=== PATIENT | male | born 1985 | race Hispanic/Latino ===

== ENCOUNTER 2020-10-10 11:38 | Emergency (ER) | payer SELFPAY ==
[2020-10-10 14:03] VITALS: BP 124/70
[2020-10-10 14:56] LABS: Basophils # (Auto) 0.1 K/mm3 (0.0-0.1); Eosinophils # (Auto) 0.4 K/mm3 (0.0-0.4); Eosinophils % (Auto) 4.4 % (0.0-4.3); Hematocrit 47.6 % (35.5-45.6); Hemoglobin 16.4 gm/dl (11.8-15.2); Lymphocytes # (Auto) 2.5 K/mm3 (1.2-5.4); Lymphocytes % (Auto) 27.5 % (13.4-35.0); Mean Corpuscular HGB Conc 34 % (32-34); Mean Corpuscular Volume 94 fl (84-94); Monocytes # (Auto) 0.9 K/mm3 (0.0-0.8); Monocytes % (Auto) 9.9 % (0.0-7.3); Platelet Count 276 K/mm3 (140-440); Red Blood Count 5.04 M/mm3 (3.65-5.03); Red Cell Distribution Width 13.4 % (13.2-15.2)
[2020-10-10 15:03] LABS: BUN/Creatinine Ratio 21; Blood Urea Nitrogen 17 mg/dL (9-20); Hemolysis Index 6
--- NOTE | 2020-10-10 15:54 | Emergency Department Report ---
HPI - General Chief Complaint: Psych Time Seen by Provider: 10/10/20 15:46 - HPI HPI: 35-year-old male presents to the emergency department for a mental health evaluation. He has a history of schizophrenia and complains of nonspecific hallucinations auditory. He says that he hears many different sounds and noises and he fights them finds them to be disturbing. He denies any suicidal or homicidal ideations. The patient got out of a psychiatric facility about 1.5 weeks ago but says that he lost his medications almost immediately. He says he was on Celexa, and "2 more." He denies any past medical history. ED Review of Systems ROS: Stated complaint: HEARING VOICES Other details as noted in HPI Comment: All other systems reviewed and negative Constitutional: denies: chills, fever Eyes: denies: eye pain, vision change ENT: denies: ear pain, throat pain Respiratory: denies: cough, shortness of breath Cardiovascular: denies: chest pain, palpitations Gastrointestinal: denies: abdominal pain, vomiting Genitourinary: denies: dysuria, discharge Musculoskeletal: denies: joint swelling, arthralgia Skin: denies: rash, lesions Neurological: denies: weakness, numbness Psychiatric: auditory hallucinations. denies: homicidal thoughts, suicidal thoughts Physical Exam - Physical Exam Vital Signs: Vital Signs 10/10/20 13:59 Temperature 97.6 F Pulse Rate 82 Respiratory 16 Rate Blood Pressure 124/70 [Right] O2 Sat by Pulse 98 Oximetry Physical Exam: GENERAL: The patient is well-developed well-nourished. HENT: Normocephalic. Atraumatic. Patient has moist mucous membranes. EYES: Extraocular motions are intact. NECK: Supple. Trachea is midline. CHEST/LUNGS: Clear to auscultation. There is no respiratory distress noted. HEART/CARDIOVASCULAR: Regular. There is no tachycardia. There is no murmur. ABDOMEN: Abdomen is soft, nontender. Patient has normal bowel sounds. SKIN: Skin is warm and dry. NEURO: The patient is awake, alert, and oriented. The patient is cooperative. Normal speech. MUSCULOSKELETAL: There is no tenderness or deformity. There is no limitation range of motion. . ED Course Vital Signs 10/10/20 13:59 Temperature 97.6 F Pulse Rate 82 Respiratory 16 Rate Blood Pressure 124/70 [Right] O2 Sat by Pulse 98 Oximetry ED Medical Decision Making - Lab Data Result diagrams: 10/10/20 14:24 10/10/20 14:24 Lab Results 10/10/20 10/10/20 10/10/20 Range/Units 14:24 14:24 14:24 WBC (4.5-11.0) K/mm3 RBC (3.65-5.03) M/mm3 Hgb (11.8-15.2) gm/dl Hct (35.5-45.6) % MCV (84-94) fl MCH (28-32) pg MCHC (32-34) % RDW (13.2-15.2) % Plt Count (140-440) K/mm3 Lymph % (Auto) (13.4-35.0) % Brown % (Auto) (0.0-7.3) % Eos % (Auto) (0.0-4.3) % Baso % (Auto) (0.0-1.8) % Lymph # (Auto) (1.2-5.4) K/mm3 Brown # (Auto) (0.0-0.8) K/mm3 Eos # (Auto) (0.0-0.4) K/mm3 Baso # (Auto) (0.0-0.1) K/mm3 Seg Neutrophils % (40.0-70.0) % Seg Neutrophils # (1.8-7.7) K/mm3 Sodium 135 L (137-145) mmol/L Potassium 3.5 L (3.6-5.0) mmol/L Chloride 97.0 L (98-107) mmol/L Carbon Dioxide 27 (22-30) mmol/L Anion Gap 15 mmol/L BUN 17 (9-20) mg/dL Creatinine 0.8 (0.8-1.3) mg/dL Estimated GFR > 60 ml/min BUN/Creatinine Ratio 21 % Glucose 89 (75-100) mg/dL Calcium 10.0 (8.4-10.2) mg/dL Salicylates < 0.3 L (2.8-20.0) mg/dL Acetaminophen 5.0 L (10.0-30.0) ug/mL Plasma/Serum Alcohol (0-0.07) % 10/10/20 10/10/20 Range/Units 14:24 14:24 WBC 9.0 (4.5-11.0) K/mm3 RBC 5.04 H (3.65-5.03) M/mm3 Hgb 16.4 H (11.8-15.2) gm/dl Hct 47.6 H (35.5-45.6) % MCV 94 (84-94) fl MCH 32 (28-32) pg MCHC 34 (32-34) % RDW 13.4 (13.2-15.2) % Plt Count 276 (140-440) K/mm3 Lymph % (Auto) 27.5 (13.4-35.0) % Brown % (Auto) 9.9 H (0.0-7.3) % Eos % (Auto) 4.4 H (0.0-4.3) % Baso % (Auto) 1.0 (0.0-1.8) % Lymph # (Auto) 2.5 (1.2-5.4) K/mm3 Brown # (Auto) 0.9 H (0.0-0.8) K/mm3 Eos # (Auto) 0.4 (0.0-0.4) K/mm3 Baso # (Auto) 0.1 (0.0-0.1) K/mm3 Seg Neutrophils % 57.2 (40.0-70.0) % Seg Neutrophils # 5.2 (1.8-7.7) K/mm3 Sodium (137-145) mmol/L Potassium (3.6-5.0) mmol/L Chloride (98-107) mmol/L Carbon Dioxide (22-30) mmol/L Anion Gap mmol/L BUN (9-20) mg/dL Creatinine (0.8-1.3) mg/dL Estimated GFR ml/min BUN/Creatinine Ratio % Glucose (75-100) mg/dL Calcium (8.4-10.2) mg/dL Salicylates (2.8-20.0) mg/dL Acetaminophen (10.0-30.0) ug/mL Plasma/Serum Alcohol < 0.01 (0-0.07) % - Medical Decision Making This patient, with a history of schizophrenia, presents for a mental health evaluation. He denies any suicidal or homicidal ideations. He admits to a auditory hallucinations, but they are not causing but they are not command hallucinations and he is not responding to internal stimuli. At the time of my examination, the patient is calm and appropriate, oriented. He is not obvious for requiring a 1013 and/or inpatient stabilization. The patient is very interested in inpatient treatment as he wants to get restarted on his psychiatric medications. Labs have been mostly unremarkable thus far including CBC, metabolic panel, blood alcohol level. We do not yet have a urine sample for urinalysis and UDS. If the patient has UTI he may require antibiotics. He does not appear acutely intoxicated. The patient was later seen by the psychiatric team who agreed that the patient does not meet criteria for 1013 or require inpatient stabilization. He has been given outpatient referrals for behavioral health centers and psychiatry. He understands that he should return to the emergency department with any worsening of his symptoms, thoughts of harming himself or others, or with any acute distress. Critical Care Time: No Critical care attestation.: If time is entered above; I have spent that time in minutes in the direct care of this critically ill patient, excluding procedure time. ED Disposition Clinical Impression: Auditory hallucinations Schizophrenia Qualifiers: Schizophrenia type: unspecified Qualified Code(s): F20.9 - Schizophrenia, unspecified Disposition: DC-09 OP ADMIT IP TO THIS HOSP Is pt being admited?: No Condition: Stable Instructions: Schizophrenia Additional Instructions: In case of an emergency, please contact the following numbers: [place] Crisis and Access Line: Number: Crisis Text Line: (Text START) Number: 002871 Suicide Prevention Line: Number: Emergency Number: 911 SUBSTANCE ABUSE PROGRAMS: [facility]: Location: [place], [place] [facility] Address: [address] [place] [address] [facility]: Address: [address] [place] [address] [facility] Adult Rehabilitation: Address: [address] [place] [address] [facility]: Address: [address] [place] [address] [facility] Address: [address] [place] [address]. Please contact above numbers to attempt placement into free based program. Medicaid Programs: [facility]: Address: [address] [place] [address] [facility]: Address: [address] [place] [id number] HOMELESS RESOURCES: [facility] NEED HELP? If you are in need of help or know someone who does, please contact us at [email or web address] call , or come to our offices at [address] [facility], [place] [address], Tuesday-Tuesday beginning at 8AM. [facility] Males only Admission at 7am Tue to Tue Address: [address] [place] [address] Client Engagement [phone] Regular program admission occurs Tuesday through Tuesday at 7:00 amand operates on a first come, first serve basis.Because we cant anticipate program availability in advance andprogram spots are in high demand, we recommend arriving early. Space fills up fast! Next steps can include: Assignment to a [facility] program bed Connection to and placement in a partner program, or Referral to a partner agency [place]: [facility] Address: [address] [place] [address] How do I join the [facility] housing program? Our housing programs are offered based on availability. If you are looking to participate in our housing program, simply call [phone] to find out if we have available space. Since we do receive many calls, please allow up to 48 hours for one of our housing specialists to return your call. If we do not have vacancies, we suggest callingthe [facility] hotline at 211 for additional housing options. [facility] only Admission at 4:30pm daily Address: [address] [place] [address] [facility] Admission from 8am to 10am Daily No intake until 03/10/20 Address: [address] [place] [address] [facility]: [facility] [address] [place] [address] Tuesday thru Tuesday - 8am - 5pm Call to schedule an assessment for mental health and substance abuse programs [facility]: [facility] Address: [address] [place] [address] Tuesday thru Tuesday- 7am-2pm [facility] Address: [address] [place] [address] Tuesday thru Tuesday: 8:30AM-5PM Referrals: [facility] [Provider Group] - 3-5 Days [facility] [Outside] - 3-5 Days [facility], [Primary Care Provider] - 3-5 Days Time of Disposition: 18:22
== END 2020-10-10 19:26 | disposition admitted as inpatient to this hospital (09) ==
LOC: ED 11:38
DX: F20.9 Schizophrenia, unspecified (principal)
CPT/HCPCS: 36415; 80048; 80320; 85025; 99283; G0480

== ENCOUNTER 2021-04-09 00:04 | Emergency (ER) | payer SELFPAY ==
--- NOTE | 2021-04-09 00:48 | Emergency Department Report ---
HPI - General Chief Complaint: Psych Time Seen by Provider: 04/09/21 00:23 - [facility] HPI: [place] [address] The patient is a 36-year-old male present with a chief complaint of suicidal ideation. Patient states he is felt suicidal for the past 1 to 2 months. Patient admits to auditory hallucinations as well. The patient states a day or 2 ago he had a plan to jump off of a tower but when he got to the top the door was locked. Patient has a history of schizophrenia and admits to methamphetamine use ED Past Medical Hx - Past Medical History Previous Medical History?: Yes Hx Psychiatric Treatment: (schizophrenia) - Surgical History Past Surgical History?: Yes - Family History Family history: no significant - Social History Smoking Status: Current Every Day Smoker (1 pack/day) Substance Use Type: Alcohol (Daily), Cocaine, Marijuana, Methamphetamines - Medications Home Medications: Home Medications Medication Instructions Recorded Confirmed Last Taken Type Divalproex Dr [DepaKOTE DR] 250 mg PO BID #60 tablet 04/12/21 Unknown Rx QUEtiapine [SEROquel] 150 mg PO BID #90 tab 04/12/21 Unknown Rx ED Review of Systems ROS: Stated complaint: SUICIDAL THOUGHTS Other details as noted in HPI Constitutional: no symptoms reported Eyes: denies: eye pain ENT: denies: throat pain Respiratory: no symptoms reported Cardiovascular: denies: chest pain Endocrine: no symptoms reported Gastrointestinal: denies: abdominal pain Genitourinary: denies: dysuria Musculoskeletal: denies: back pain Neurological: denies: headache Psychiatric: auditory hallucinations, suicidal thoughts Physical Exam - Physical Exam Vital Signs: Vital Signs 04/09/21 00:21 Temperature 98.9 F Pulse Rate 98 H Respiratory 16 Rate Blood Pressure 123/74 [Right] O2 Sat by Pulse 100 Oximetry Physical Exam: GENERAL: The patient is well-developed well-nourished male lying on stretcher not appearing to be in acute distress. [] HEENT: Normocephalic. Atraumatic. Extraocular motions are intact. Patient has moist mucous membranes. NECK: Supple. Trachea midline CHEST/LUNGS: Clear to auscultation. There is no respiratory distress noted. HEART/CARDIOVASCULAR: Regular. There is no tachycardia. There is no gallop rub or murmur. ABDOMEN: Abdomen is soft, nontender. Patient has normal bowel sounds. There is no abdominal distention. SKIN: There is no rash. There is no edema. There is no diaphoresis. NEURO: The patient is awake, alert, and oriented. The patient is cooperative. The patient has no focal neurologic deficits. The patient has normal speech. G CS 15 MUSCULOSKELETAL: There is no evidence of acute injury. ED Course Vital Signs 04/09/21 00:21 Temperature 98.9 F Pulse Rate 98 H Respiratory 16 Rate Blood Pressure 123/74 [Right] O2 Sat by Pulse 100 Oximetry ED Medical Decision Making - Lab Data Result diagrams: 04/12/21 09:23 04/09/21 00:35 - Differential Diagnosis Suicidal ideation Critical care attestation.: If time is entered above; I have spent that time in minutes in the direct care of this critically ill patient, excluding procedure time. ED Disposition Clinical Impression: Suicidal ideation Disposition: HOME / SELF CARE / HOMELESS Is pt being admited?: No Does the pt Need Aspirin: No Condition: Stable Instructions: Persistent Depressive Disorder, Adult, Suicidal Feelings: How to Help Yourself Additional Instructions: Drink plenty water. Continue your medications. Continue recommendations from behavioral health. Follow-up with your family doctor and the on-call physician as needed. Prescriptions: Divalproex Dr [DepaKOTE DR] 250 mg PO BID #60 tablet QUEtiapine [SEROquel] 150 mg PO BID #90 tab Referrals: GASPER KUMAR MD [Staff Physician] - 3-5 Days PRIMARY CARE, [Primary Care Provider] - 3-5 Days
[2021-04-09 00:54] LABS: Basophils % (Auto) 0.4 % (0.0-1.8); Eosinophils # (Auto) 0.2 K/mm3 (0.0-0.4); Eosinophils % (Auto) 1.6 % (0.0-4.3); Hemoglobin 16.1 gm/dl (11.8-15.2); Lymphocytes % (Auto) 16.2 % (13.4-35.0); Mean Corpuscular HGB Conc 33 % (32-34); Mean Corpuscular Volume 94 fl (84-94); Monocytes # (Auto) 1.3 K/mm3 (0.0-0.8); Monocytes % (Auto) 10.8 % (0.0-7.3); Platelet Count 325 K/mm3 (140-440); Red Blood Count 5.24 M/mm3 (3.65-5.03); Red Cell Distribution Width 13.5 % (13.2-15.2)
[2021-04-09 01:06] LABS: Alanine Aminotransferase 19 units/L (7-56); Albumin 5.2 g/dL (3.9-5); Blood Urea Nitrogen 22 mg/dL (9-20); Calcium 9.7 mg/dL (8.4-10.2); Hemolysis Index 22
[2021-04-09 01:07] LABS: BUN/Creatinine Ratio 31
--- NOTE | 2021-04-09 12:26 | Consultation ---
History of Present Illness - Reason for Consult Consult date: 04/09/21 Reason for consult: suicidal ideation - History of Present Psychiatric Illness ED Note: The patient is a 36-year-old male present with a chief complaint of suicidal ideation. Patient states he is felt suicidal for the past 1 to 2 months. Patient admits to auditory hallucinations as well. The patient states a day or 2 ago he had a plan to jump off of a tower but when he got to the top the door was locked. Patient has a history of schizophrenia and admits to methamphetamine use. Octavio Pena is a 36 year old male with history of schizophrenia who presents to the ED with suicidal ideation. In my interview with the patient, he endorses worsening depression and suicidal ideation with a plan jump off a tower. The patient reports recent stressor such as " family issues." The patient also admits to having command auditory hallucinations " voices telling me to do it." PAST PSYCHIATRIC HISTORY Diagnoses: Schizophrenia Suicide attempts or Self-harm behavior: Yes Prior psychiatric hospitalizations: Yes Substance Abuse history: "weed" Previous psychiatric medications tried: risperidone, depakote, seroquel Outpatient treatment: Yes PAST MEDICAL HISTORY: None reported Family Psychiatric History: None reported or documented SOCIAL HISTORY Marital Status: Single Living Arrangements:Lives with cousin Employment Status:employed Access to guns/weapons: Denies Education: 10th grade History of Abuse: none reported Legal History: none REVIEW OF SYSTEMS Constitutional: Negative for weight loss ENT: Negative for stridor Respiratory: Negative for cough or hemoptysis All other systems reviewed and are negative MENTAL STATUS EXAMINATION General Appearance and Behavior: Age appropriate,wearing appropriate clothes, fair eye contact Cooperation: Engaged Psychomotor Behavior: Normal Mood: Depressed Affect and affective range: congruent to stated mood Thought Process: Circumstantial Thought Content: Suicidal Speech: Normal tone and pace Suicidal Ideation:Yes Homicidal Ideation: Denies Hallucinations: Auditory Delusions: None elicited Insight and Judgment: Limited insight and fair judgment Memory: Normal Attention: divided attention impaired Orientation: Alert, oriented x2 Assessment: DX- Schizophrenia -1013 Treatment Plan Continue home medications. Start Seroquel 50mg po QHS Start Seroquel 25mg po BID Risks, benefits and alternatives of medications discussed with the patient, questions answered and consent obtained from patient. PSYCHOTHERAPY: Supportive psychotherapy provided MEDICAL: Per primary team DELIRIUM PRECAUTIONS: Please re-orient patient frequently, keep lights on during the day, and minimize benzodiazepines and opiates as these medications could worsen patient's confusion. NETWORK LIAISON: per primary DISPOSITION: Recommend acute psychiatric treatment. Will follow. Thank you for the consult. Please contact with any questions and/or concerns. Case discussed with Dr. Gotti who agrees with current disposition Medications and Allergies Medications and Allergies Medications and Allergies Allergies Allergy/AdvReac Type Severity Reaction Status Date / Time No Known Allergies Allergy Unverified 10/10/20 14:03 Mental Status Exam - Vital signs Last Vital Signs Temp 98.0 F 04/09/21 08:22 Pulse 81 04/09/21 08:22 Resp 16 04/09/21 08:22 BP 116/83 04/09/21 08:22 Pulse Ox 96 04/09/21 08:22 Results Result Diagrams: 04/09/21 00:35 04/09/21 00:35 Abnormal lab results 04/09/21 04/09/21 04/09/21 Range/Units 00:35 00:35 00:35 WBC 12.4 H (4.5-11.0) K/mm3 RBC 5.24 H (3.65-5.03) M/mm3 Hgb 16.1 H (11.8-15.2) gm/dl Hct 49.0 H (35.5-45.6) % Weston % (Auto) 10.8 H (0.0-7.3) % Weston # (Auto) 1.3 H (0.0-0.8) K/mm3 Seg Neutrophils % 71.0 H (40.0-70.0) % Seg Neutrophils # 8.8 H (1.8-7.7) K/mm3 Sodium 136 L (137-145) mmol/L BUN 22 H (9-20) mg/dL Creatinine 0.7 L (0.8-1.3) mg/dL Albumin 5.2 H (3.9-5) g/dL Salicylates < 0.3 L (2.8-20.0) mg/dL Acetaminophen (10.0-30.0) ug/mL 04/09/21 Range/Units 00:35 WBC (4.5-11.0) K/mm3 RBC (3.65-5.03) M/mm3 Hgb (11.8-15.2) gm/dl Hct (35.5-45.6) % Weston % (Auto) (0.0-7.3) % Weston # (Auto) (0.0-0.8) K/mm3 Seg Neutrophils % (40.0-70.0) % Seg Neutrophils # (1.8-7.7) K/mm3 Sodium (137-145) mmol/L BUN (9-20) mg/dL Creatinine (0.8-1.3) mg/dL Albumin (3.9-5) g/dL Salicylates (2.8-20.0) mg/dL Acetaminophen 5.0 L (10.0-30.0) ug/mL All other labs normal.
[2021-04-09] MEDS: QUEtiapine 25 MG TAB PO SCH ×2 (17:08→22:43)
[2021-04-09] MEDS ORDERED: ZIPRASIDONE MESYLATE 20 MG VIAL IM ONE (17:29)
[2021-04-09] MEDS ORDERED: QUEtiapine 25 MG TAB PO SCH (22:00)
[2021-04-10 09:08] LABS: Benzodiazepines Screen,Urine Negative; Cocaine Screen,Urine Negative; Methadone Screen,Urine Negative; Opiate Screen,Urine Negative
[2021-04-10] MEDS ORDERED: ZIPRASIDONE MESYLATE 20 MG VIAL IM ONE ×2 (09:11→09:16)
[2021-04-10 09:17] LABS: Bilirubin,Urine NEG (Negative); Blood,Urine NEG (Negative); Color,Urine Yellow (Yellow); Protein,Urine <15 mg/dL mg/dL (Negative); Urobilinogen,Urine < 2.0 mg/dL (<2.0)
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
[2021-04-10 09:29] LABS: Amphetamine Screen,Urine Positive; Cannabinoid Screen,Urine Positive
[2021-04-10 09:35] LABS: RBC,Urine < 1.0 /HPF (0.0-6.0); WBC,Urine < 1.0 /HPF (0.0-6.0)
[2021-04-10] MEDS: QUEtiapine 100 MG TAB PO SCH ×2 (09:52→22:30)
[2021-04-10] MEDS: DIVALPROEX DR 125 MG TAB PO SCH ×2 (09:52→22:30)
--- NOTE | 2021-04-10 11:35 | Emergency Department Report ---
Blank Doc - Documentation Documentation: Chart reviewed 36-year-old male presents to the hospital currently on 1013 for suicidal ideation with psychosis and paranoia. UDS positive for amphetamine. Covid negative. Compliant with p.o. medications. Placement pending.
[2021-04-10] MEDS ORDERED: NICOTINE 14 MG/24 HR PATCH TD ONE (16:49)
[2021-04-11] MEDS: DIVALPROEX DR 125 MG TAB PO SCH (09:36)
[2021-04-11] MEDS: QUEtiapine 100 MG TAB PO SCH ×3 (09:36→22:16)
--- NOTE | 2021-04-11 09:38 | Progress Note ---
Subjective - Reason for Consult Consult date: 04/11/21 Reason for consult: SI - Chief Complaint Chief complaint: The patient was seen today. He endorses SI with a plan to jump off of something. He says he is hearing voices. The patient says "there are too many of them for me to make out what they are saying to me." REVIEW OF SYSTEMS Constitutional: Negative for weight loss ENT: Negative for stridor Respiratory: Negative for cough or hemoptysis All other systems reviewed and are negative MENTAL STATUS EXAMINATION General Appearance and Behavior: Age appropriate,wearing appropriate clothes, fair eye contact, agitated Cooperation: Engaged Psychomotor Behavior: Normal Mood: upset Affect and affective range: congruent to stated mood Thought Process: Circumstantial Thought Content: Suicidal Speech: Normal tone and pace Suicidal Ideation: Yes Homicidal Ideation: Denies Hallucinations: Auditory Delusions: None elicited Insight and Judgment: Limited insight and fair judgment Memory: Normal Attention: divided attention impaired Orientation: Alert, oriented x2 Assessment: DX- Schizophrenia Treatment Plan 1013 Increase Seroquel 150mg po BID Increase Depakote DR 250mg po BID Risks, benefits and alternatives of medications discussed with the patient, questions answered and consent obtained from patient. PSYCHOTHERAPY: Supportive psychotherapy provided MEDICAL: Per primary team DELIRIUM PRECAUTIONS: Please re-orient patient frequently, keep lights on during the day, and minimize benzodiazepines and opiates as these medications could worsen patient's confusion. SOUND EQUIPMENT MECHANIC: per primary DISPOSITION: Recommend acute psychiatric treatment. Will follow. Thank you for the consult. Please contact with any questions and/or concerns. Case discussed with Dr. Gotti who agrees with current disposition Mental Status Exam - Vital signs Last Vital Signs Temp 97.5 F L 04/11/21 04:44 Pulse 65 04/11/21 04:44 Resp 16 04/11/21 04:44 BP 117/72 04/11/21 04:44 Pulse Ox 98 04/11/21 09:17
[2021-04-11 10:34] LABS: Amphetamine Screen,Urine Negative; Benzodiazepines Screen,Urine Negative; Cocaine Screen,Urine Negative; Methadone Screen,Urine Negative; Opiate Screen,Urine Negative
[2021-04-11 11:07] LABS: Cannabinoid Screen,Urine Positive
[2021-04-11] MEDS: DIVALPROEX DR 250 MG TAB PO SCH ×2 (11:22→22:16)
--- NOTE | 2021-04-11 12:22 | Event Note ---
Date: 04/11/21 36-year-old male here for SI/psychosis. He was seen by my colleague and was medically cleared for psychiatric evaluation and placement. Vital signs reviewed and are stable. There were no acute vents overnight. Currently awaiting inpatient psychiatric facility placement.
[2021-04-11] MEDS ORDERED: NICOTINE 14 MG/24 HR PATCH TD ONE (16:49)
--- NOTE | 2021-04-12 09:18 | Emergency Department Report ---
Blank Doc - Documentation Documentation: Throughout the night, there have been no problems. Patient still endorses kerry cidal thoughts. Symptoms have gradually improved. He did have leukocytosis but there was no source of infection. He was hemoconcentrated. A repeat CBC will be completed today just to document his white count has normalized so psychiatric services will be able to place the patient. Other labs have been reviewed.
[2021-04-12] MEDS: DIVALPROEX DR 250 MG TAB PO SCH (09:42)
[2021-04-12] MEDS: QUEtiapine 100 MG TAB PO SCH (09:42)
[2021-04-12 09:52] LABS: Hematocrit 49.4 % (35.5-45.6); Hemoglobin 15.8 gm/dl (11.8-15.2); Mean Corpuscular HGB Conc 32 % (32-34); Mean Corpuscular Volume 94 fl (84-94); Platelet Count 255 K/mm3 (140-440); Red Blood Count 5.28 M/mm3 (3.65-5.03); Red Cell Distribution Width 12.8 % (13.2-15.2)
--- NOTE | 2021-04-12 10:00 | Progress Note ---
Subjective - Reason for Consult Consult date: 04/12/21 Reason for consult: SI - Chief Complaint Chief complaint: The patient was seen today. He says he doesn't feel good. The patient says he has a headache. When asking how was his mood, he replies "I'm alright." He denies hallucinations of any kind. When asking about SI/HI. The patient first says "no." He then says "a little suicidal." REVIEW OF SYSTEMS Constitutional: Negative for weight loss ENT: Negative for stridor Respiratory: Negative for cough or hemoptysis All other systems reviewed and are negative MENTAL STATUS EXAMINATION General Appearance and Behavior: Age appropriate,wearing appropriate clothes, fair eye contact, calm, cooperative Cooperation: Engaged Psychomotor Behavior: Normal Mood: alright Affect and affective range: congruent to stated mood Thought Process: logical Thought Content: None Speech: Normal tone and pace Suicidal Ideation: a little Homicidal Ideation: Denies Hallucinations: Denies Delusions: None elicited Insight and Judgment: Limited insight and fair judgment Memory: Normal Attention: divided attention impaired Orientation: Alert, oriented x2 Assessment: DX- Schizophrenia Treatment Plan d/c 1013 Seroquel 150mg po BID Depakote DR 250mg po BID Risks, benefits and alternatives of medications discussed with the patient, questions answered and consent obtained from patient. PSYCHOTHERAPY: Supportive psychotherapy provided MEDICAL: Per primary team DELIRIUM PRECAUTIONS: Please re-orient patient frequently, keep lights on during the day, and minimize benzodiazepines and opiates as these medications could worsen patient's confusion. FISHER CRAB: per primary DISPOSITION: Do not recommend acute psychiatric treatment. The patient understands that if suicidal/homicidal thoughts arise he is to seek immediate assistance. The patient to follow up with outpatient psych in 7 to 14 days upon discharge. The javascript front end developer to give him all necessary outpatient resources including shelters. Please give the patient a transportation pass Will sign off. Thanks Thank you for the consult. Please contact with any questions and/or concerns. Case discussed with Dr. Gotti who agrees with current disposition Mental Status Exam - Vital signs Last Vital Signs Temp 98.5 F 04/11/21 21:02 Pulse 79 04/11/21 21:02 Resp 18 04/12/21 05:11 BP 115/75 04/11/21 21:02 Pulse Ox 97 04/12/21 05:11
[2021-04-12 10:48] VITALS: BP 112/67
== END 2021-04-12 11:02 | disposition home or self-care (01) ==
LOC: EEVIPCON 00:04 → ED 00:04
DX: F20.9 Schizophrenia, unspecified (principal); F14.10 Cocaine abuse, uncomplicated; F15.10 Other stimulant abuse, uncomplicated; F12.10 Cannabis abuse, uncomplicated; R45.851 Suicidal ideations; Z20.822 Contact with and (suspected) exposure to COVID-19
CPT/HCPCS: 36415; 80053; 80307; 81001; 85025; 85027; 96372; 99284; J3486; U0003; 80320; G0480

== ENCOUNTER 2021-04-28 02:47 | Emergency (ER) | payer SELFPAY ==
[2021-04-28 07:56] VITALS: BP 120/82
== END 2021-04-28 08:19 | disposition home or self-care (01) ==
LOC: ED 02:47
DX: J20.9 Acute bronchitis, unspecified (principal); F17.200 Nicotine dependence, unspecified, uncomplicated; F10.20 Alcohol dependence, uncomplicated; F12.90 Cannabis use, unspecified, uncomplicated
CPT/HCPCS: 99283